=== PATIENT | male | born 1990 | race Caucasian/White ===

== ENCOUNTER 2019-03-11 18:44 | Emergency (ER) | payer BC ==
[~2019-03-11] VITALS: Ht 180.3 cm; Wt 90.7 kg
--- NOTE | 2019-03-11 18:44 | NUR ---
Patient BIBA ALS accompanied by V[facility]ana 101, transferred to bed 10. RN evaluating patient at bedside.
[2019-03-11 18:47] VITALS: BP 116/62
--- NOTE | 2019-03-11 18:53 | NUR ---
NOTIFIED DR. SUAREZ HR IN 135-140 RANGE, RECEIVED ORDER FOR EKG.
[2019-03-11] MEDS ORDERED: NACL 0.9% 1,000 ML IV ONE (18:55)
--- NOTE | 2019-03-11 18:59 | NUR ---
28/M DONTRELL FRY ACCOMPANIED BY GIRLFRIEND. ARRIVED WITH LT AC #[address] AND INFUSING NS BOLUS. C/O WITNESSED TON/CLON SEIZURE X 1 MIN IN DURATION THAT STARTED AT 1815 TODAY. LAST SEIZURE X 6 YEARS AGO, NOT ON ANY ANTIEPILEPTICS. SEIZURE RESOLVED SPONTANEOUSLY TODAY WITHOUT MEDICAL INTERVENTION. PER GIRLFRIEND, PT HIT CHEEK ON COUNTER, THEN FELL ON FLOOR. PT DENIES PAIN. SKIN INTACT ON FACE. PT BIT RIGHT TONGUE, BLOOD NOTED AND BLEEDING CONTROLLED. SLIGHT DELAY IN VERBAL RESPONSE BUT ANSWERS ALL QUESTIONS APPROPRIATELY, AOX4, OBEYS ALL COMMANDS. [facility]CS 15. PERRLA. HX- SEIZURE, CERVICAL SPONDYLOSIS Addendum: 03/11/19 at 1910 by LILIANA FULL CLEAR SPEECH. DENIES BOWEL/BLADDER INCONTINENCE DURING/AFTER SZ.
--- NOTE | 2019-03-11 19:10 | NUR ---
REPORT GIVEN TO MARY CH. TRANSFER OF CARE AT THIS TIME.
--- NOTE | 2019-03-11 19:42 | NUR ---
PT C/O LEFT FACIAL THROBBING PAIN 08/19. WILL CONTINUE TO MONITOR.
[2019-03-11] MEDS ORDERED: KETOROLAC 30 MG/ML VIAL IVP ONE (20:05)
[2019-03-11] MEDS ORDERED: levETIRAcetam 100 MG/ML VIAL IV ONE (20:12)
[2019-03-11] MEDS ORDERED: MORPHINE SULFATE 4 MG/ML SYR IVP ONE (21:00)
[2019-03-11] MEDS ORDERED: levETIRAcetam 500 MG in NACL 0.9% 100 ML IV SCH (21:00)
--- NOTE | 2019-03-11 21:11 | NUR ---
PT CONTINUES TO C/O LEFT FACIAL THROBBING PAIN. PT RECEIVED MORPHINE AND PROVIDED ICE PACK TO HELP ALLEVIATE PAIN.
[2019-03-11 21:47] VITALS: BP 122/77
--- NOTE | 2019-03-11 21:47 | NUR ---
Patient discharged with v/s stable by Dr. Polanco. Written and verbal after care instructions given and explained. Patient alert, oriented and verbalized understanding of instructions. Ambulatory with steady gait. All questions addressed prior to discharge. ID band removed. Patient advised to follow up with PMD. Rx of NAPROSYN 500MG AND KEPPRA 500MG WAS given. Patient educated on indication of medication including possible reaction and side effects. Opportunity to ask questions provided and answered.
== END 2019-03-11 21:47 | disposition home or self-care (01) ==
LOC: MED 18:44
DX: G40.909 Epilepsy, unspecified, not intractable, without status epilepticus (principal)
CPT/HCPCS: 70450; 72125; 72131; 93005; 96365; 96375; 99284; J1885; J1953; J2270; J7030